=== PATIENT | female | born 1950 | race Caucasian/White ===

== ENCOUNTER → 2023-07-21 09:42 | Outpatient (CLI) | payer MEDICARE, SELFPAY ==
--- NOTE | 2023-07-21 09:45 | DI.NM.S_ITS ---
PROCEDURE: NM BONE SCAN WHOLE BODY RADIOPHARMACEUTICAL: 22 mCi Tc-99m MDP IV. INDICATIONS: Breast Cancer TECHNIQUE: Delayed whole-body scintigrams were obtained approximately 3-4 hours after intravenous injection of radiotracer. Anterior and posterior views were acquired from vertex to feet. Additional left and right oblique views of the thoracic cage were obtained. COMPARISON: None. FINDINGS: There is a mild focal increased uptake in the anterior aspect of the left 4th rib, probably secondary to remote rib fracture. No lesions are identified in skull, sternum, clavicles, scapulae, bony pelvis and visualized shafts of the long bones. There are foci of increased uptake in cervical, thoracic and lumbar spine most likely secondary to degenerative disc and facet disease; early metastasis to spine could be obscured by degenerative changes. There are foci of increased periarticular activity most pronounced in shoulders, sternoclavicular joints, hips, SI joints, ankles and feet, compatible with degenerative/arthritic changes. IMPRESSION: 1. No definitive scintigraphic findings to suggest osseous metastases. 2. Focal uptake in the anterior aspect of the left 4th rib, probably secondary to remote fracture. Recommend radiographic correlation. 3. Foci of increased uptake in the cervical, thoracic and lumbar spine most likely degenerative in nature. Recommend radiographic correlation. 4. Degenerative/arthritic changes as noted. Dictated by: Kenneth Michaels M.D. on 07/21/2023 at 15:43 Approved by: Kenneth Michaels M.D. on 07/21/2023 at 16:02
== END ==
PROVIDERS: PCP Family Medicine; Referring Provider Internal Medicine; Visit Provider Internal Medicine
DX: C50.912 Malignant neoplasm of unspecified site of left female breast (principal); Z17.0 Estrogen receptor positive status [ER+]
CPT/HCPCS: 78306; A9503